=== PATIENT | female | born 1935 | race Caucasian/White ===

== ENCOUNTER 2016-08-12 17:08 | Emergency (ER) | payer MEDICARE, OTHER ==
[~2016-08-12] VITALS: Ht 162.6 cm; Wt 86.4 kg
[~2016-08-12 17:08] MED LIST: ACET1TAB12 PO; ADV250INH IH; ALBU8.5H2 IH; ASPI81TA3 PO; CALC-890 PO; DILT240C51 PO; ESTR42.52 VAGINAL; FLUO10CA30 PO; FLUT15.88 BURSAL; GLUC-180 PO; HYDR25TA4 PO; LANS30CA PO; LOVA10TA PO; MONT10TA20 PO; NITR1PAT58 TRANSDERM; OXYB5TAB10 PO; SUCR1TAB PO
[2016-08-12 17:21] VITALS: BP 177/77; PULSE 73; RESP 20; O2SAT 96
[2016-08-12] MEDS ORDERED: 0.9% Sodium Chloride 1,000 ML IV ONE (17:26)
--- NOTE | 2016-08-12 17:26 | ED.REPORT ---
HPI-General Illness Date of Service Aug 12, 2016 ED Provider: Ky Benites MD The patient is an 81 year old female with history of GERD, C. Diff, s/p hysterectomy and appendectomy, hypertension, hyperlipidemia, diabetes mellitus, asthma, and coronary artery disease, who presents to the emergency department by EMS complaining of RLQ abdominal pain that has been intermittent over the last year. This episode today started about 1.5 hours prior to arrival. Her pain is normally relieved with Tylenol. Her pain was 10/10 when she called the medics but after Tylenol and Motrin her pain has improved to an 8/10. It is abnormal for her pain to remain this severe. When asked to describe the pain she states, "It just hurts. It is not cramping. It is not sharp. It is not dull. " Her pain seems to be exacerbated with movement or palpation. She denies radiating pain, weight loss, constipation, diarrhea, bloody stools, melena, vomiting, fever, chills, dysuria, hematuria, urinary frequency/urgency changes, chest pain, shortness of breath or fever. She is able to pass gas. She had a colonoscopy with no acute findings about 1 year ago. She has not been evaluated for this in the past. She was recently treated for a urinary tract infection. Nursing Notes Stated Complaint: LOWER QUADRANT PAIN Chief Complaint: Female Abdominal Pain Nursing Notes Reviewed: Yes Allergies: Coded Allergies: meloxicam (Verified Adverse Reaction, Intermediate, stomach upset, 07/13/15 ) cefuroxime axetil (Verified Adverse Reaction, Unknown, c-dif, 07/13/15) Scheduled Aspirin Chew (Aspirin Chew) 81 Mg Chew 81 MG PO DAILY Calcium Carbonate/Vitamin D3 (Calcium 600 + Vit D3 Tablet) 1 Each Tablet 1 EACH PO DAILY Diltiazem ER (Cartia XT) 240 Mg Cap.er.24h 240 MG PO BID Estradiol (Estrace) 42.5 Gm Cream.appl 1 G VAGINAL WEEKLY Fluoxetine (Prozac) 10 Mg Capsule 10 MG PO AM Fluticasone/Salmeterol (Advair 250-50 Diskus) 60 Puff/Inh Disk 2 PUFF IH BID Glucosamine/MSM/Chondroitin A (Glucosamine Chondroit MSM Tab) 1 Each Tablet 1 EACH PO BID Hydrochlorothiazide (Hydrochlorothiazide) 25 Mg Tablet 25 MG PO DAILY Lansoprazole (Lansoprazole) 30 Mg Capsule.dr 30 MG PO BIDAC Lovastatin (Lovastatin) 10 Mg Tablet 10 MG PO HS Montelukast (Singulair) 10 Mg Tablet 10 MG PO HS Oxybutynin Chloride (Oxybutynin Chloride) 5 Mg Tablet 5 MG PO BID Sucralfate (Sucralfate) 1 Gm Tablet 1 GM PO QID Scheduled PRN Acetaminophen/Codeine 300-30mg (Tylenol/Codeine #3) 1 Each Tablet 1 EACH PO Q6 PRN PRN For Pain Albuterol HFA (Proair HFA) 8.5 Gm Hfa.aer.ad 2 PUFFS IH Q4 PRN PRN For Shortness of Breath Nitroglycerin 0.1 mg/hr Patch (Nitroglycerin 0.1 mg/hr Patch) 1 Each Patch 1 PATCH TRANSDERM DAILY PRN PRN hypertension Miscellaneous Medications Fluticasone Propionate (Fluticasone Propionate) 50 Mcg/Actuation [place].susp 2 SPRAYS BURSAL General Time Seen by MD: 17:25 Chief Complaint Abdominal pain Hx Obtained From: Patient, EMS Arrived By: Ambulance Sudden in Onset?: No Onset Occurred: More than a week ago... (>6 months) Symptom Duration: Intermittent Location: : Abdomen Quality: Painful Severity: Current: Pain level 8 out of 10 Severity: Maximum: Pain level 10 out of 10 Recent Healthcare: No recent hospitalization Similar Sx Previous: Yes Past Medical History Past Medical History Anxiety Reports: Asthma, Diabetes mellitus, GERD, Hypertension Reports: Atrial fibrillation, Depression Past Surgical History Bladder tumor Lumpectomy Reports: Appendectomy, Cataract surgery, Hysterectomy Family History Noncontributory Smoking History Never Smoker Social History Alcohol Use: Denies alcohol use Drug Use: Denies drug use Other Social History: Local resident Ambulatory Status Independent Review of Systems Full Review of Systems Constitutional: Denies: Fever, Recent wt loss Respiratory: Denies: Shortness of breath Cardiovascular: Denies: Chest pain GI: Reports: Abdominal pain, Denies: Bloody/tarry stool, Constipation, Diarrhea, Hematemesis, Melena, Nausea, Vomiting Female: Denies: Dysuria, Hematuria, Urinary frequency, Urinary urgency, Urination decreased, Urination increased Musculoskeletal: Denies: Back pain Complete sys rev & neg: except as marked. Physical Exam Vital Signs Vital Signs Date Time Temp Pulse Resp B/P Pulse Ox O2 Delivery O2 Flow Rate FiO2 08/12/16 19:53 36.3 90 18 162/92 97 Room Air 08/12/16 19:53 36.3 90 18 162/92 97 Room Air 08/12/16 17:21 36.8 73 20 177/77 96 Room Air Initial VS: Reviewed Head / Eyes: Atraumatic, Normocephalic, PERRL Neck: Supple, Non-tender, Full range of motion Lymphatic: No lymphadenopathy Extremities: Vascular intact, Neuro intact, No swelling, No tenderness Skin: Warm, Dry, No cyanosis Neurologic: Alert, Oriented, Nonfocal Psychiatric: Mood/affect normal, Behavior normal, Normal thought content General/Constitutional: Awake, Alert, Cooperative ENT: Atraumatic, Airway patent, Mucous membranes moist Respiratory / Chest: Atraumatic, Breath sounds NL, Breath sounds = bilat, No respiratory distress, No rales, No rhonchi, No wheezing Cardiovascular: Heart rate NL, Regular rhythm, Heart sounds NL, No gallop, No murmurs, No rubs, Cap refill not delayed, Peripheral circulation NL Abdomen: Soft, No guarding, No rebound, BS normoactive, No distention, No hernia, No palpable mass, No pulsatile mass No rash about the abdomen. She has tenderness just about the RLQ/right inguinal region. There is no swelling or palpable hernias or masses. Lower Extremity / Pelvis / MS: Neurologic intact, Vascular intact, No edema No unilateral calf swelling or tenderness. Varicosities about the lower extremities. Interpretation & Diagnostics Lab Results Interpretation Result Diagram: 08/12/16 1720 08/12/16 1720 Test 08/12/16 17:20 08/12/16 18:08 White Blood Count 13.6th/mm3 (3.8-10.1) Red Blood Count 4.23mil/mm3 (3.90-5.20) Hemoglobin 10.5g/dL (12.0-15.6) Hematocrit 33.8% (35.0-46.0) Mean Corpuscular Volume 79.9fL (81-100) Mean Corpuscular Hemoglobin 24.8pg (27.0-35.0) Mean Corpuscular Hemoglobin Concent 31.1% (32.0-37.0) Red Cell Distribution Width 14.8% (12.3-15.4) Platelet Count 342bil/L (150-400) Neutrophils (%) (Auto) 54.2% (40-74) Lymphocytes (%) (Auto) 24.0% (14-46) Monocytes (%) (Auto) 12.6% (4-12) Eosinophils (%) (Auto) 8.7% (0-5) Basophils (%) (Auto) 0.2% (0-3) Sodium Level 135mEq/L (134-144) Potassium Level 4.0mEq/L (3.5-5.2) Chloride Level 97mEq/L (97-108) Carbon Dioxide Level 24mmol/L (18-29) Blood Urea Nitrogen 17mg/dL (8-27) Creatinine 0.99mg/dL (0.57-1.00) Estimat Glomerular Filtration Rate 77mL/min (>59) Glucose Level 119mg/dL (60-99) Calcium Level 9.2mg/dL (8.5-10.1) Magnesium Level 1.8mg/dL (1.6-2.6) Total Bilirubin 0.2mg/dL (0.0-1.2) Aspartate Amino Transf (AST/SGOT) 13U/L (0-50) Alanine Aminotransferase (ALT/SGPT) 12U/L (0-32) Alkaline Phosphatase 53U/L (25-165) Total Protein 6.9g/dL (6.4-8.4) Albumin 4.0g/dL (3.4-5.0) Lipase 34U/L (13-60) Hold Givens Top Tube Received (Received) Urine Color Yellow (YELLOW) Urine Appearance Clear (CLEAR,HAZY) Urine pH 6.5 (5.0-8.0) Urine Specific [place] 1.010 (1.003-1.035) Urine Protein Negativemg/dL (NEG,TRACE) Urine Glucose (UA) Negativemg/dL (NEGATIVE) Urine Ketones Negativemg/dL (NEGATIVE) Urine Occult Blood Negative (NEGATIVE) Urine Nitrite Negative (NEGATIVE) Urine Bilirubin Negative (NEGATIVE) Urine Urobilinogen Normalmg/dL (NORMAL) Urine Leukocyte Esterase Small (NEGATIVE) Urine RBC 0-2/hpf (0-2) Urine WBC 6-10/hpf (0-5) Urine Epithelial Cells Moderate/hpf (NONE-MOD) Urine Crystals None seen (NONE SEEN) Urine Bacteria None/hpf (NONE-FEW) Urine Hyaline Casts None/lpf (NONE) Urine Granular Casts None seen (NONE SEEN) Urine Waxy Casts None seen (NONE SEEN) Urine Red Blood Cell Casts None seen (NONE SEEN) Urine White Blood Cell Casts None seen (NONE SEEN) Urine Mucus None seen (None Seen) Urine Trichomonas None seen (NONE SEEN) Urine Yeast None (NONE SEEN) Urinalysis Comment None Urine Culture Reflexed Indicated CT Abd / Pelvis Interpretation IMPRESSION: 1. No acute intra-abdominal findings. The appendix is not visualized; however there are no ancillary findings to suggest acute appendicitis. 2. Small fat containing right inguinal hernia. It is unclear where this may represent the patient's right lower quadrant pain. No bowel herniation or strangulation. Dictated by: Analisa Watkins M.D. on 08/12/2016 at 18:53 Interpretation / Wet Read by: Interpret - Radiologist Re-Eval/Medical Decision Med Decision/Clinical Course The patient is an 81 year old female with history of GERD, C. Diff, s/p hysterectomy and appendectomy, hypertension, hyperlipidemia, diabetes mellitus, asthma, and coronary artery disease, who presents to the emergency department by EMS complaining of RLQ abdominal pain that has been intermittent over the last year. This episode today started about 1.5 hours prior to arrival. Her pain is normally relieved with Tylenol. Her pain was 10/10 when she called the medics but after Tylenol and Motrin her pain has improved to an 8/10. It is abnormal for her pain to remain this severe. When asked to describe the pain she states, "It just hurts. It is not cramping. It is not sharp. It is not dull. " Her pain seems to be exacerbated with movement or palpation. She denies radiating pain, weight loss, constipation, diarrhea, bloody stools, melena, vomiting, fever, chills, dysuria, hematuria, urinary frequency/urgency changes, chest pain, shortness of breath or fever. She is able to pass gas. She had a colonoscopy with no acute findings about 1 year ago. She has not been evaluated for this in the past. She was recently treated for a urinary tract infection. Here in the emergency department the patient is somewhat hypertensive though otherwise hemodynamically stable and afebrile. She was treated with Tylenol for pain, Zofran for nausea and IV fluids. She reported complete resolution of her symptoms. LABS: leukocytosis of 13.6, hct 33.8, CMP unremarkable, lipase WNL, UA: small leukesterase, 6-10 WBCs, moderate epithelial cells, no bacteria - unconvincing for UTI. CT scan as below: 1. No acute intra-abdominal findings. The appendix is not visualized; however there are no ancillary findings to suggest acute appendicitis. 2. Small fat containing right inguinal hernia. It is unclear where this may represent the patient's right lower quadrant pain. No bowel herniation or strangulation. At this time, there is no evidence of an acute surgical intra-abdominal process. Patient does have hernia in the location where she describes her pain however it is not incarcerated or strangulated. I do not feel that she requires emergent surgical evaluation or intervention. Urinalysis is somewhat equivocal for UTI however she has no symptoms thereof and it seems most consistent with a contaminated specimen. Her overall presentation is not suggestive of urinary tract infection or pyelonephritis. At this time I feel the patient is appropriate for outpatient management. She has been referred to general surgery and she will follow up with them as well as her primary care physician. Prior to discharge follow-up and return precautions were reviewed in detail with the patient who verbalized understanding and agreement with the plan. The patient was discharged in stable condition. Source of Hx: Old records, EMS Time of Eval: 17:55 Re-Evaluation/Progress Note: Discussed plan for workup. Time of Eval: 19:22 Re-Evaluation/Progress Note: Rechecked the patient. Discussed results, diagnosis, and plan for discharge. All questions were addressed. Counseled Regarding: Diagnosis, Lab results, Need for follow-up, When/why to return to ED Discharge & Departure Primary Impression: Right inguinal hernia Additional Impressions: Right lower quadrant abdominal pain History of appendectomy Disposition: Home Discharge Condition All VS Reviewed: Yes Condition: Stable Patient Instructions: Inguinal Hernia (ED) Additional Instructions: Thank you for seeking care at the emergency room. It is difficult for us to make definitive diagnoses in the ED but we believe that you are experiencing pain related to an inguinal hernia. Our primary goal today in the ED was to evaluate you for any life-threatening conditions. Your evaluation was reassuring. You should follow-up with a surgeon in the next week.We have given your a referral to Dr. Diaz. You should return to the ED immediately if you develop worsening pain or swelling, fevers, vomiting, or any other concerning signs or symptoms. Thank you for letting us partake in your care today. Referrals: Juan J Koo MD (PCP) Nando Diaz MD Attestation Portions of this note were transcribed by Beverly Gallardo. I, Dr. Benites personally performed the history, physical exam and medical decision-making; I reviewed and confirmed the accuracy of the information in the transcribed note. Signed by: Mere Moe, 08/12/2016 at 1930. copies to: Juan J Koo MD; Nando Diaz MD, Beck O MD Aug 12, 2016 17:26 Beverly Gallardo Aug 12, 2016 17:29
[2016-08-12] MEDS ORDERED: Ondansetron 2 mg/mL 2 mL Inj IVPUSH ONE (17:30)
[2016-08-12 17:31] LABS: BASOPHILS % (AUTO) 0.2 % (0-3); EOSINOPHILS % (AUTO) 8.7 % (0-5); MONOCYTES % (AUTO) 12.6 % (4-12); Mean Corpuscular Hemoglobin 24.8 pg (27.0-35.0); Mean Corpuscular Volume 79.9 fL (81-100); NEUTROPHILS % (AUTO) 54.2 % (40-74); Platelet Count 342 bil/L (150-400)
[2016-08-12 17:52] LABS: Magnesium 1.8 mg/dL (1.6-2.6)
[2016-08-12 18:45] LABS: APPEARANCE,URINE CLEAR (CLEAR,HAZY); COLOR,URINE YELLOW (YELLOW); OCCULT BLOOD,URINE NEGATIVE (NEGATIVE); PH,URINE 6.5 (5.0-8.0); UROBILINOGEN,URINE NORMAL (NORMAL)
--- NOTE | 2016-08-12 19:02 | DRSVH ---
PROCEDURE: CT ABDOMEN AND PELVIS WITH CONTRAST ([id number]) INDICATIONS: rlq pain TECHNIQUE: After the administration of intravenous contrast, 5 mm thick sections acquired from the diaphragm to the symphysis. 5 mm coronal and sagittal reformats were acquired. For radiation dose reduction, the following was used: automated exposure control, adjustment of mA and/or kV according to patient teddyz e. COMPARISON: [facility], CT, ABD/PELVIS W/CON (PN), 05/26/2013, 18:48. FINDINGS: Image quality: Excellent. ABDOMEN: Lung bases: Lung bases are clear. Heart size is normal. Solid organs: Liver and spleen are normal in size and enhancement. Gallbladder is unremarkable. Bi liary system is non dilated. Pancreas enhances normally. No adrenal nodules. Kidneys demonstrate n ormal size and enhancement, without hydronephrosis. Peritoneum and bowel: Bowel loops demonstrate normal wall thickness and caliber. The appendix is not visualized; however there is no discrete right lower quadrant fluid or fat stranding to suggest acut e appendicitis. No free fluid or air. Nodes and vessels: No retroperitoneal or mesenteric adenopathy by size criteria. Aorta and inferior vena cava are normal in size. There are scattered atheromatous calcifications throughout the aorta and iliac arteries bilaterally. Miscellaneous: There is a small fat containing umbilical hernia. PELVIS: Genitourinary: Bladder wall thickness is normal. Miscellaneous: There is a small right fat containing inguinal hernia. Bones: No suspicious bony lesions. No vertebral body compression fractures. IMPRESSION: 1. No acute intra-abdominal findings. The appendix is not visualized; however there are no ancillary findings to suggest acute appendicitis. 2. Small fat containing right inguinal hernia. It is unclear where this may represent the patient's r ight lower quadrant pain. No bowel herniation or strangulation. Dictated by: Analisa Watkins M.D. on 08/12/2016 at 18:53 Approved by: Analisa Watkins M.D. on 08/12/2016 at 19:00
[2016-08-12 19:53] VITALS: BP 162/92; PULSE 90; RESP 18; O2SAT 97
== END 2016-08-12 19:54 | disposition home or self-care (01) ==
LOC: EDBD 17:08 → SED 17:08
DX: K40.90 Unilateral inguinal hernia, without obstruction or gangrene, not specified as recurrent (principal); K21.9 Gastro-esophageal reflux disease without esophagitis; I10 Essential (primary) hypertension; E78.5 Hyperlipidemia, unspecified; E11.9 Type 2 diabetes mellitus without complications; J45.909 Unspecified asthma, uncomplicated; I25.10 Atherosclerotic heart disease of native coronary artery without angina pectoris; Z98.890 Other specified postprocedural states; Z79.82 Long term (current) use of aspirin; Z88.8 Allergy status to other drugs, medicaments and biological substances
CPT/HCPCS: 74177; 80053; 81000; 83690; 83735; 85025; 87086; 87088; 96360; 96361; 99285; J7030; Q9967